=== PATIENT | male | born 1995 | race Caucasian/White ===

== ENCOUNTER 2022-02-03 21:01 | Emergency (ER) | payer OTHER, SELFPAY ==
[2022-02-03 21:05] VITALS: BP 140/75; PULSE 100; RESP 20; TEMP 37.2; O2SAT 98
[2022-02-03 22:11] LABS: Influenza A - CEPHEID Flu A NEGATIVE (NEGATIVE); Influenza B - CEPHEID Flu B NEGATIVE (NEGATIVE)
[2022-02-03 22:27] LABS: COVID-19 CEPHEID PCR (VTM/NP) POSITIVE (Negative)
--- NOTE | 2022-02-03 22:34 | ED.GENADULT ---
HPI - General Adult General Chief complaint: Upper Respiratory Symptoms Stated complaint: fever, cough Time Seen by Provider: 02/03/22 21:25 Source: patient Mode of arrival: Ambulatory Limitations: no limitations History of Present Illness HPI narrative: Patient is a 26-year-old male who is here for evaluation of approximately 24 hours of a fever and cough. He is vaccinated against COVID. Has had no known sick contacts. Has not tried anything for symptoms prior to arrival. Review of Systems Constitutional Constitutional: Reports system reviewed and no additional complaints, except as documented ENT Ears, Nose, Mouth, and Throat: Reports system reviewed and no additional complaints, except as documented Respiratory Respiratory: Reports system reviewed and no additional complaints, except as documented Integumentary/Breasts Skin/Breast: Reports system reviewed and no additional complaints, except as documented Allergic/Immunologic Allergic/Immunologic: Reports system reviewed and no additional complaints, except as documented Patient History Medical History Healthy adult Social History Smoking Status: Never smoker Smoking Status: Never smoker alcohol intake frequency: holidays/special occasions only Substance Use Type: does not use Exam Initial Vital Signs Initial Vital Signs: Vital Signs Temperature 98.9 F 02/03/22 21:05 Pulse Rate 100 H 02/03/22 21:05 Respiratory Rate 20 02/03/22 21:05 Blood Pressure 140/75 02/03/22 21:05 Pulse Oximetry 98 02/03/22 21:05 Oxygen Delivery Method 02/03/22 21:05 HENMT Head: normal to inspection Resp Effort & Inspection: normal respiratory effort Auscultation: clear to auscultation bilaterally Cardio Rate: regular rate Rhythm: regular rhythm Neuro General: patient alert and patient awake Extrem General: normal to inspection Course Orders Ordered: ED Orders 02/03/22 22:11 Covid-19 + FLU A/B by PCR Stat Vital Signs Vital signs: Vital Signs - 8 hr 02/03/22 21:05 02/03/22 22:51 Temperature 98.9 F Pulse Rate 100 H 84 Respiratory Rate 20 19 Blood Pressure 140/75 128/66 Pulse Oximetry 98 98 Oxygen Delivery Method Room Air Room Air Medical Decision Making Lab Data Labs: Lab Results 02/03/22 Range/Units 22:11 SARS-CoV-2 (PCR) Positive H (Negative) Influenza A (RT-PCR) Flu a negative (NEGATIVE) Influenza B (RT-PCR) Flu b negative (NEGATIVE) MDM Narrative Medical decision making narrative: Clear lung exam. Hypoxic. Not tachypneic. No respiratory distress. Is COVID positive. No underlying lung pathology. No indication for antibiotics. We did discuss his COVID positive status. Will discharge patient home with return precautions. He expressed understanding and agreement. Discharge Plan Departure Patient Disposition: Home Clinical Impression: COVID-19 Instructions: DI for COVID-19 (Suspected or Confirmed ) Activity Restrictions/Additional Instructions: Please follow all current CDC guidelines with regard to quarantine. You can take Tylenol for fevers. Be sure to increase your fluid intake. Return to the emergency department for worsening problems breathing like we discussed. Stand Alone Forms: Work Release Note Visit Report Forms: Patient Portal/API
[2022-02-03 22:51] VITALS: BP 128/66; PULSE 84; RESP 19; O2SAT 98
== END 2022-02-03 22:51 | disposition home or self-care (01) ==
PROVIDERS: Emergency Provider Emergency Medicine
DX: U07.1 COVID-19 (principal)
CPT/HCPCS: 87635; 99281; 99282; C9803

== ENCOUNTER 2022-09-05 16:19 | Emergency (ER) | payer OTHER, SELFPAY ==
[2022-09-05 16:21] VITALS: BP 148/74; PULSE 83; RESP 18; TEMP 36.6; O2SAT 100; BMI 37.7
--- NOTE | 2022-09-05 16:21 | DI.US.S_ITS ---
PROCEDURE: US SCROTUM INDICATIONS: PAIN TECHNIQUE: Real-time scanning was performed of the scrotum and testicles, with image documentation. Color and pulse Doppler interrogation was performed of both testicles. COMPARISON: None. FINDINGS: Right: Testicle is normal in size at 4.1 x 2.6 x 2.9 cm, and homogenous in echotexture. Epididymis is normal in overall size and morphology. There is a small right-sided hydrocele. Overlying scrotal skin is normal in thickness. Left: Testicle is normal in size at 3.8 x 2.6 x 2.8 cm, and homogeneous in echotexture. Epididymis is normal in overall size and demonstrates a 6 mm epididymal cyst. A small left-sided hydrocele is seen. Overlying scrotal skin is normal in thickness. Doppler: Color and pulse Doppler demonstrate normal and symmetric arterial flow in both testicles. Negative for varicocele. IMPRESSION: Normal appearing testicles, without masses or torsion. Small bilateral hydroceles are seen. Dictated by: Mega Abad M.D. on 09/05/2022 at 16:13 Approved by: Mega Abad M.D. on 09/05/2022 at 16:14
--- NOTE | 2022-09-05 17:56 | ED.MALEGU ---
HPI - Male Genitourinary <Patrick Andersen PA-C - Last Filed: 10/01/22 11:48> General Chief complaint: Urogenital-Male Stated complaint: Poss left testicular torsion Time Seen by Provider: 09/05/22 16:31 Source: patient Mode of arrival: Ambulatory History of Present Illness HPI Narrative: This is a 27-year-old male presents emergency department due to 6 days of testicular pain primarily on the left. Denies any penile discharge or hematuria. Denies any trauma to the testicles. States that it is usually a 2/10 but when it is ?bumped? it increases to a 5/10. No history of this in the past. Related Data Allergies Allergy/AdvReac Type Severity Reaction Status Date / Time No Known Drug Allergies Allergy Verified 09/05/22 16:21 Review of Systems <Patrick Andersen PA-C - Last Filed: 10/01/22 11:48> Review of Systems Narrative: GENERAL: Denies chills, fatigue, malaise, fever, sweats. HEENT: Denies sinus pain, ear pain, sore throat, difficulty swallowing, dizziness. RESPIRATORY: Denies dyspnea, cough, wheezing, hemoptysis, sputum. CARDIOVASCULAR: Denies chest pain, palpitations, orthopnea, edema, GASTROINTESTINAL: Denies nausea, vomiting, abdominal pain, diarrhea, constipation, melena. : Reports testicular pain, denies dysuria or penile discharge MUSCULOSKELETAL: denies weakness, joint pain, or bony pain SKIN: Denies rash, skin lesions, or other NEUROLOGIC: Denies weakness, headache, numbness, change in speech, confusion, seizures, incoordination. PSYCHIATRIC: No concerning psychosocial issues. 12 point review of systems is negative except for those stated above Patient History <Patrick Andersen PA-C - Last Filed: 10/01/22 11:48> Medical History Healthy adult Social History Smoking Status: Never smoker Smoking Status: Never smoker alcohol intake frequency: holidays/special occasions only Substance Use Type: does not use Exam <JUAN M Maya Last Filed: 10/01/22 11:48> Narrative Exam Narrative: GENERAL: Well-developed patient, in mild distress. HEAD: Atraumatic. Normocephalic. EYES: Pupils equal round and reactive. Extraocular motions intact. No scleral icterus. No injection or drainage. ENT: Nose without bleeding, purulent drainage. Throat without erythema, tonsillar hypertrophy or exudate. Airway patent. NECK: Trachea midline. Non tender GASTROINTESTINAL: Abdomen soft, non-tender, nondistended. No inguinal hernias or masses felt EXTREMITIES: No edema or joint tenderness. BACK: Nontender without deformity or crepitance. No flank tenderness. NEURO: AOx3. SKIN: No rash or erythema of visible areas : Testicles appear level, slight discomfort to the left testicle when manipulated, no penile abnormalities or discharge Initial Vital Signs Initial Vital Signs: Vital Signs Temperature 98 F 09/05/22 16:21 Pulse Rate 83 09/05/22 16:21 Respiratory Rate 18 09/05/22 16:21 Blood Pressure 148/74 H 09/05/22 16:21 Pulse Oximetry 100 09/05/22 16:21 Oxygen Delivery Method 09/05/22 16:21 <Yakelin Mcmahan DO - Last Filed: 10/02/22 07:32> Initial Vital Signs Initial Vital Signs: Vital Signs Temperature 98 F 09/05/22 16:21 Pulse Rate 83 09/05/22 16:21 Respiratory Rate 18 09/05/22 16:21 Blood Pressure 148/74 H 09/05/22 16:21 Pulse Oximetry 100 09/05/22 16:21 Oxygen Delivery Method 09/05/22 16:21 Course <Patrick Andersen PA-C - Last Filed: 10/01/22 11:48> Orders Ordered: ED Orders 09/05/22 16:21 US scrotum Stat 09/05/22 17:29 Chlamydia Gonorrhea PCR -URINE Stat 09/05/22 19:07 Urinalysis and Microscopic Stat Vital Signs Vital signs: Vital Signs - 8 hr 09/05/22 16:21 Temperature 98 F Pulse Rate 83 Respiratory Rate 18 Blood Pressure 148/74 H Pulse Oximetry 100 Oxygen Delivery Method Room Air <Yakelin Mcmahan DO - Last Filed: 10/02/22 07:32> Orders Ordered: ED Orders 09/05/22 16:21 US scrotum Stat 09/05/22 17:29 Chlamydia Gonorrhea PCR -URINE Stat 09/05/22 19:07 Urinalysis and Microscopic Stat Vital Signs Vital signs: Vital Signs - 8 hr 09/05/22 16:21 Temperature 98 F Pulse Rate 83 Respiratory Rate 18 Blood Pressure 148/74 H Pulse Oximetry 100 Oxygen Delivery Method Room Air MDM - Male Genitourinary <Patrick Andersen PA-C - Last Filed: 10/01/22 11:48> Lab Data Labs: Lab Results 09/05/22 09/05/22 Range/Units 17:29 17:29 Urine Color Yellow Urine Appearance Clear Urine pH 6.0 (4.5-8.0) Ur Specific [place] 1.020 (1.000-1.035) Urine Protein Negative (Negative) Urine Glucose (UA) Negative (Negative) g/dL Urine Ketones Negative (NEGATIVE) Urine Occult Blood Negative (Negative) Urine Nitrate Negative (Negative) Urine Bilirubin Negative (NEGATIVE) Urine Urobilinogen 0.2 (0.2) E.U./dL Ur Leukocyte Esterase Negative (NEGATIVE) Urine RBC None seen (0-5/HPF) Urine WBC None seen (0-5/HPF) Urine Bacteria None seen (None) Ur Culture Indicated? Cult not indicated Ur Chlamydia DNA (PCR) Not detected N gonorrhoeae DNA (PCR) Not detected Imaging Data US - abdomen: Radiologist's Impression: [place] [address] Ultrasound Report Signed Patient: Tere Milan MR#: [id number] : 1995 Acct:[id number] Age/Sex: 27 / M Date of Service: 09/05/22 Loc: ED Accession Number: [id number] ?? Procedure: US scrotum Ordering Provider: Artie Esparza D.O. PROCEDURE:? US SCROTUM ? INDICATIONS:? PAIN ? TECHNIQUE:? Real-time scanning was performed of the scrotum and testicles, with image documentation.? Color and pulse Doppler interrogation was performed of both testicles.? ? COMPARISON:? None. ? FINDINGS:? ? Right:? Testicle is normal in size at 4.1 x 2.6 x 2.9 cm, and homogenous in echotexture.? Epididymis is normal in overall size and morphology.? There is a small right-sided hydrocele.? Overlying scrotal skin is normal in thickness.? ? Left:? Testicle is normal in size at 3.8 x 2.6 x 2.8 cm, and homogeneous in echotexture.? Epididymis is normal in overall size and demonstrates a 6 mm epididymal cyst.? A small left-sided hydrocele is seen.? Overlying scrotal skin is normal in thickness.? ? Doppler:? Color and pulse Doppler demonstrate normal and symmetric arterial flow in both testicles.? Negative for varicocele. ? ? IMPRESSION:? Normal appearing testicles, without masses or torsion.? ? Small bilateral hydroceles are seen. ? ? Dictated by: Mega Abad M.D. on 09/05/2022 at 16:13 ? ? Approved by: Mega Abad M.D. on 09/05/2022 at 16:14 ? [facility] Narrative Medical decision making narrative: This is a 27-year-old male presents emergency department due to 5 days testicular pain. Ultrasound negative for testicular torsion but was positive for hydrocele. Recommended follow-up with outpatient primary care provider for referral for to Urology if symptoms continue. Urinalysis shows negative for UTI. Care was transferred to my attending physician, Dr. Mcmahan, end of shift to follow up on gonorrhea and chlamydia results. CC: Testicular pain Complicating co-morbidities: None Data collected from: Previous records Medical records reviewed: Patient has not been here for similar complaints in the past. Differential considered, but not limited to: Testicular torsion, varicocele, hydrocele, UTI, chlamydia, gonorrhea Exam documented above, pertinent findings include: Mild testicular pain with manipulation Lab Test results independently reviewed as above. Pertinent findings: Independently reviewed EKG as above: None obtained Imaging studies independently reviewed: Ultrasound negative for testicular torsion but was notable for hydrocele Scores Used: None MIPS Elements: None Consultations: None Treatments: None Re-evaluations: On re-evaluation patient's mild pain was similar as prior Discussion: Discussed plan for discharge home with outpatient follow-up the patient was agreeable Diagnosis: Hydrocele Disposition: see below, along with detailed discharge instructions that have been reviewed with patient as well as indications for ED re-evaluation and additional outpatient follow up <Yakelin Mcmahan, DO - Last Filed: 10/02/22 07:32> Lab Data Labs: Lab Results 09/05/22 09/05/22 Range/Units 17:29 17:29 Urine Color Yellow Urine Appearance Clear Urine pH 6.0 (4.5-8.0) Ur Specific [place] 1.020 (1.000-1.035) Urine Protein Negative (Negative) Urine Glucose (UA) Negative (Negative) g/dL Urine Ketones Negative (NEGATIVE) Urine Occult Blood Negative (Negative) Urine Nitrate Negative (Negative) Urine Bilirubin Negative (NEGATIVE) Urine Urobilinogen 0.2 (0.2) E.U./dL Ur Leukocyte Esterase Negative (NEGATIVE) Urine RBC None seen (0-5/HPF) Urine WBC None seen (0-5/HPF) Urine Bacteria None seen (None) Ur Culture Indicated? Cult not indicated Ur Chlamydia DNA (PCR) Not detected N gonorrhoeae DNA (PCR) Not detected Discharge Plan Departure Patient Disposition: Home Clinical Impression: Hydrocele Instructions: DI for Hydrocele-Adult Activity Restrictions/Additional Instructions: Thank you for coming to the [facility] Emergency Department today. Your ultrasound was negative for any kind of testicular torsion as we discussed but it did come back positive for hydrocele which is not dangerous. Please read the attached information for more information about this. You may follow up with your primary care provider for possible referral to Urology if your symptoms continues. The chlamydia and gonorrhea tests were negative. Your urinalysis showed no evidence of a urinary tract infection either. I hope you feel better soon. Referrals: Darrius Juarez MD [Physician] - Stand Alone Forms: Patient Portal/API <Yakelin Mcmahan DO - Last Filed: 10/02/22 07:32> Cosign ED Attending Angelaature Attestation: I was immediately available in the department for consultation. Documentation has been reviewed. Patient case was discussed. GC had actually return prior to signed out to myself. Patient was dispositioned by plan with follow-up with urology. And return precautions.
[2022-09-05 19:52] LABS: Appearance Urine UA CLEAR; Bilirubin Urine UA NEGATIVE (NEGATIVE); Color Urine UA YELLOW; Glucose Urine UA NEGATIVE (Negative); Ketones Urine UA NEGATIVE (NEGATIVE); Leukocyte Esterase Urine UA NEGATIVE (NEGATIVE); Nitrite Urine UA NEGATIVE (Negative); Occult Blood Urine UA NEGATIVE (Negative); Protein Urine UA NEGATIVE (Negative); Urobilinogen Urine UA 0.2 E.U./dL (0.2)
[2022-09-05 20:13] LABS: Urine N gonorrhoeae NOT DETECTED
[2022-09-05 20:19] LABS: Bacteria Urine None Seen; Culture Indicated Urine Cult Not Indicated; RBC Urine None Seen (0-5/HPF); WBC Urine None Seen (0-5/HPF)
[2022-09-05 20:20] LABS: Urine Chlamydia NOT DETECTED
[2022-09-05 20:48] VITALS: BP 119/69; PULSE 72; RESP 18; O2SAT 99
== END 2022-09-05 20:50 | disposition home or self-care (01) ==
PROVIDERS: Physician Assistant Medical; Emergency Provider Emergency Medicine
DX: N43.3 Hydrocele, unspecified (principal)
CPT/HCPCS: 76870; 81001; 87491; 87591; 93975; 99283